=== PATIENT | female | born 1955 | race Caucasian/White ===

== ENCOUNTER 2018-09-14 07:07 | Day surgery (SDC) | payer MEDICARE, OTHER ==
[2018-09-12 16:14] VITALS: BMI 32.6
[~2018-09-14 07:07] MED LIST: DEXAMETHASONE SOD PHOSPHATE 10 MG/ML 1 ML VIAL IV ONE; HYDROmorphone 0.5 MG/0.5 ML SYRINGE IVP PRN; LACTATED RINGERS 1,000 ML IV SCH; MIDAZOLAM 2 MG/2 ML VIAL IV PRN; ONDANSETRON 4 MG/2 ML VIAL IVP ONE; Pre Op ABX Message 1 EACH MISC MISCELLANE ONE; SCOPOLAMINE 1.5MG/72HR PATCH TRANSDERM ONE
[2018-09-14] MEDS ORDERED: LIDOCAINE 1% 20 ML VIAL (10MG/ML) FOR IV START INTRADERMA ONE (07:45)
[2018-09-14 07:52] LABS: Glucose,Whole Blood 210 mg/dL (75-99)
[2018-09-14] MEDS ORDERED: BUPIVACAINE (PF) 0.25% 30 ML VIAL SQ ONE (08:09)
[2018-09-14] MEDS ORDERED: MIDAZOLAM 2 MG/2 ML VIAL ONE (08:14)
[2018-09-14] MEDS ORDERED: KETOROLAC 30 MG/ML 1 ML VIAL ONE (08:14)
[2018-09-14] MEDS ORDERED: SUCCINYLCHOLINE CHLORIDE 100 MG/5 ML SYR IV ONE (08:14)
[2018-09-14] MEDS ORDERED: fentaNYL (PF) 50 MCG/ML 2 ML AMP ONE (08:14)
[2018-09-14] MEDS ORDERED: PROPOFOL 10 MG/ML 20 ML VIAL IV ONE (08:14)
[2018-09-14] MEDS ORDERED: SODIUM CHLORIDE 0.9% 50 ML with ceFAZolin 2,000 MG IV ONE ×2 (08:19)
--- NOTE | 2018-09-14 09:37 | P.OP ---
Date of Procedure: 09/14/18 Procedure(s) Performed: PREOPERATIVE DIAGNOSIS: 1. Left knee lateral and medial meniscus tears 2. Left knee osteoarthritis, tricompartmental POSTOPERATIVE DIAGNOSIS: 1. Left knee lateral meniscus tear 2. Left knee medial meniscus tear 3. Left knee osteoarthritis, patellofemoral, grade 4, medial grade 4, lateral grade 4 PROCEDURES PERFORMED: 1. Left knee arthroscopy, with partial lateral meniscectomy (30)% 2. Arthroscopic partial medial meniscectomy 10 percent, posterior horn 3. Left knee arthroscopic chondroplasty of patellofemoral, medial and lateral compartments ANESTHESIA: central office maintainer: None COMPLICATIONS: none ESTIMATED BLOOD LOSS: Less than 10 ml DISPOSITION: To post-anesthesia care unit INDICATIONS: Candace is a 62 year old female with a history of left knee pain on the both the medial and lateral sides. She has had a recent MRI which also shows a tibial lateral subchondral stress fracture. Patient presents to the operating room today for arthroscopy with trimming of the meniscus or repair as necessary as well as chondroplasty or smoothing of the articular surfaces. We have dsicussed total knee replacement as the best option, but she wishes not to proceed with that at this point. I have explained the procedure in detail as well as its limitations in the context of severe osteoarthritis. We have discussed potential risks and complications as being inclusive of but not limited to: Bleeding, infection, scarring, discomfort, blood vessel and/or nerve damage, failure to relieve symptoms, persistence or recurrence and/or worsening of symptoms, blood clot, pulmonary embolism, limp, , and other risks, including the need for knee replacement. The consent form has been signed. PROCEDURE: After appropriate consent was obtained, the patient was taken to the operating room and placed supine on the operating table. General anesthesia was initiated. The knee was examined under anesthesia. Medial collateral, lateral collateral, anterior and posterior cruciate ligaments were all intact. Range of motion was 5 to 110 with mild crepitus in the patellofemoral compartment. Mild effusion but no soft tissue swelling was noted. Prepping and draping of the operative knee was performed in the usual sterile fashion using ChloraPrep. Care was taken that all pressure points were adequately padded. Leg sotelo and pneumotourniquet were used. ``Time-out" was called according to [facility] standards, confirming patient identity, surgical procedure, side, and antibiotic administration. Antibiotics were administered in this case due to the patient's history of diabetes. The surgical portals were placed directly next to the patellar tendon medially and laterally. Camera and instruments were carefully inserted into the knee and arthroscopy was performed. Patellofemoral joint was first inspected. Mild synovitis was seen, and was resected where it appeared particularly inflamed. Patellofemoral joint was noted to be arthritic, with grade 4 changes present over 100 %. Chondroplasty was performed using a shaver and radiofrequency probe, removing unstable cartilage elements and smoothing the surface to eliminate step-off. Lateral compartment was then examined. Lateral meniscus tear was noted involving the anterior horn which was displaced anteriorly . However, inspection of the meniscus showed entire meniscus to be a degenerative stellate- type tear after visualization and probing. The meniscus tear was resected using a combination of basket forceps and shaver. Approximately 30 % of the meniscus was resected. The remaining meniscus was noted to be intact and stable. Hyali ne cartilage showed severe deterioration with grade 4 changes. Chondroplasty was performed of the lateral femoral condyle remaining remnants of cartilage, smoothing the remainder. Medial compartment was then examined. Medial meniscus tear was noted involving the posterior horn and appeared to be a degenerative stellate-type tear after visualization and probing. The meniscus tear was resected using a combination of basket forceps and shaver. Approximately 10 % of the meniscus was resected. The remaining meniscus was noted to be intact and stable. Hyaline cartilage showed grade 4 changes throughout. Cruciate ligaments were noted to be intact. No loose bodies or ganglion cysts were noted around the cruciate ligaments. Medial and lateral gutters showed no evidence of loose bodies, but some mild synovitis was present and was resected with a shaver. Portals were then closed with 4-0 Monocryl suture. A quantity of Marcaine solution was injected into the knee and around the portal sites. Steri-Strips were applied and tourniquet was deflated. Sterile dressing and light compressive dressing was applied using Webril and MICHEAL wrap. Patient tolerated the procedure well and taken to recovery room in stable condition. Sponge and needle counts were correct.
[2018-09-14 10:02] VITALS: TEMP 97.3
[2018-09-14 10:35] LABS: Glucose,Whole Blood 159 mg/dL (75-99)
[2018-09-14 11:05] VITALS: BP 123/65; PULSE 78; RESP 18
== END 2018-09-14 11:26 | disposition home or self-care (01) ==
LOC: OR 07:07
PROVIDERS: ATTEND Orthopaedic Surgery
DX: S83.242A Other tear of medial meniscus, current injury, left knee, initial encounter (principal); S83.282A Other tear of lateral meniscus, current injury, left knee, initial encounter; X58.XXXA Exposure to other specified factors, initial encounter; M17.12 Unilateral primary osteoarthritis, left knee; E78.5 Hyperlipidemia, unspecified; I25.10 Atherosclerotic heart disease of native coronary artery without angina pectoris; I11.0 Hypertensive heart disease with heart failure; I50.9 Heart failure, unspecified; E11.40 Type 2 diabetes mellitus with diabetic neuropathy, unspecified; Z87.891 Personal history of nicotine dependence; E55.9 Vitamin D deficiency, unspecified; E53.8 Deficiency of other specified B group vitamins; N28.9 Disorder of kidney and ureter, unspecified; Z83.3 Family history of diabetes mellitus; Z82.49 Family history of ischemic heart disease and other diseases of the circulatory system; E78.00 Pure hypercholesterolemia, unspecified; I42.9 Cardiomyopathy, unspecified; J45.20 Mild intermittent asthma, uncomplicated; E66.9 Obesity, unspecified; Z68.32 Body mass index [BMI] 32.0-32.9, adult; F32.9 Major depressive disorder, single episode, unspecified; R06.09 Other forms of dyspnea; Z97.2 Presence of dental prosthetic device (complete) (partial); K21.9 Gastro-esophageal reflux disease without esophagitis; I27.20 Pulmonary hypertension, unspecified; Z79.4 Long term (current) use of insulin; Z79.891 Long term (current) use of opiate analgesic; Z79.899 Other long term (current) drug therapy
CPT/HCPCS: 29880; J2250; J1100; J2405; J0690; J3010; J1885; J0330; J2704